=== PATIENT | female | born 2000 | race Caucasian/White ===

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

== ENCOUNTER 2018-03-01 00:05 | Inpatient (IN) | payer OTHER ==
[2018-03-01] VITALS (18 sets, daily range): BP systolic 108–141; BP diastolic 63–79; PULSE 92–133; RESP 16–21; TEMP 99.2–102.7; O2SAT 87–98
[~2018-03-01] VITALS: Ht 167.6 cm; Wt 74.5 kg
[~2018-03-01 00:05] MED LIST changes: -AMOX400S9 PO; +AMOXICILL; -IBUP100T PO
[2018-03-01] MEDS ORDERED: PROM6.256 PO (00:27)
[2018-03-01] MEDS ORDERED: AUGM875T3 PO (00:27)
[2018-03-01] MEDS ORDERED: ALBUAER3 INH (00:27)
[2018-03-01] MEDS ORDERED: AZITHROMYCIN INJ 500 MG in SODIUM CHLOR 0.9% 250 ML INJ 250 ML IV STA (01:53)
[2018-03-01] MEDS ORDERED: cefTRIAXone INJ 2,000 MG in SODIUM CHLORIDE 0.9% INJ 100 ML IV STA (01:53)
[2018-03-01] MEDS ORDERED: ACETAMINOPHEN 325 MG TAB PO ONE (02:00)
[2018-03-01] MEDS ORDERED: RESP: ALBUTEROL 2.5 MG/IPRATROPIUM 0.5 MG NEB (SCH) INH ONE (02:00)
[2018-03-01] MEDS ORDERED: SODIUM CHLOR 0.9% 1000 ML INJ 1,000 ML IV ONE ×2 (02:00→07:30)
[2018-03-01 02:25] LABS: BILIRUBIN, URINE NEG (NEG); BLOOD, URINE NEG (NEG); GLUCOSE,URINE NEG (NEG); KETONE, URINE NEG (NEG); NITRITE,URINE NEG (NEG); PH, URINE 7.5 (5.0-8.5); URINE COLOR YELLOW (YELLW/STRAW); URINE LEUKOCYTE ESTERASE NEG (NEG)
[2018-03-01 02:36] LABS: CHLORIDE 103 MEQ/L (98-107); SODIUM (NA) 136 MEQ/L (136-145)
[2018-03-01 02:39] LABS: ALBUMIN 3.6 GM/DL (3.4-5.0); BICARBONATE 27.2 MEQ/L (21.0-32.0); CALCIUM 8.8 MG/DL (8.5-10.1); GLUCOSE,RANDOM 103 MG/DL (74-106)
[2018-03-01 02:40] LABS: BLOOD UREA NITROGEN 6 MG/DL (7-18)
--- NOTE | 2018-03-01 02:42 | RADRPT ---
EXAM DATE/TIME: 03/01/2018 02:14 [facility] COMPARISON: No previous studies available for comparison. INDICATIONS : Fever. MEDICAL HISTORY : None. SURGICAL HISTORY : None. ENCOUNTER: Initial ACUITY: 1 week PAIN SCORE: 0/10 LOCATION: Bilateral chest FINDINGS: Right upper lobe infiltrate. Left base infiltrate. No evidence of effusion. Cardiac contours are kiah sly satisfactory. CONCLUSION: Bilateral infiltrates. Timmy Tompkins MD on March 01, 2018 at 2:38 Board Certified Radiologist. This report was verified electronically.
[2018-03-01 02:43] LABS: ALT (GPT) 22 U/L (9-42); AST (GOT) 19 U/L (16-38); BASOPHIL % 0.3 % (0.0-2.0); CREATININE 0.63 MG/DL (0.50-1.00); EOSINOPHIL % 0.2 % (0.0-4.0); GLOMERULAR FILTRATION RATE 122 ML/MIN (>89); HEMATOCRIT 39.1 % (35.0-46.0); HEMOGLOBIN 12.9 GM/DL (11.6-15.3); LYMPH % 11.1 % (9.0-44.0); LYMPHOCYTE # 0.7 TH/MM3 (1.0-4.8); MEAN PLATELET VOLUME 8.8 FL (7.0-11.0); MONO % 5.8 % (0.0-8.0); MONOCYTE # 0.3 TH/MM3 (0-0.9); NEUT % 82.6 % (16.0-70.0); PLATELET COUNT 237 TH/MM3 (150-450); RED BLOOD COUNT 4.44 MIL/MM3 (4.00-5.30); RED CELL DISTRIBUTION WIDTH 12.7 % (11.6-17.2)
[2018-03-01 02:44] LABS: TOTAL BILIRUBIN ADULT 0.3 MG/DL (0.2-1.0); TOTAL PROTEIN 8.1 GM/DL (6.4-8.2)
[2018-03-01 02:45] LABS: ALKALINE PHOSPHATASE 75 U/L (45-117)
[2018-03-01 02:58] LABS: RBC, URINE 0-3 /hpf (0-3); SQUAMOUS EPITHELIAL CELL URINE 0-5 /hpf (0-5); WBC, URINE 0-2 /hpf (0-5)
--- NOTE | 2018-03-01 03:14 | PD ---
HPI Chief Complaint: Fever Time Seen by Provider: 01:53 Travel History International Travel<30 days: No Contact w/Intl Traveler<30days: No Traveled to known affect area: No History of Present Illness HPI 17-year-old female presents to the emergency department for persistent shortness of breath congested cough and fever. Patient reports 1 week ago on Saturday noted mild cough and fever. Symptoms persisted over the weekend and patient returned to the area from college was seen in urgent care on Saturday and started on Augmentin. Patient is taking Augmentin for 3 days and symptoms have not improved. No vomiting or diarrhea or abdominal pain. Patient has had left flank pain. No dysuria frequency urgency or hematuria. Last menstrual period was 1 week ago and reportedly normal for her. Patient has no chronic medical conditions. Patient has had myalgias and arthralgias. At clinic she had a negative flu test. Patient's overall pain 7-8/10 intensity. No report of sore throat ear pain neck pain or stiffness. No skin rash. Unable to identify exacerbating or alleviating factors. Patient is reportedly taking ibuprofen every 4-6 hours for fever. PFSH Past Medical History Narrative Medical Negative past medical history; immunizations current; dental surgery; no tobacco use alcohol use substance use; nursing notes reviewed Medical History: Denies Significant Hx Diminished Hearing: No Immunizations Current: Yes Tetanus Vaccination: < 5 Years Influenza Vaccination: Yes ?: Not LMP: 02/14/18 Past Surgical History Surgical History: No Previous Surgery Oral Surgery: Yes (WISDOM TEETH) Other Surgery: Yes (LIP CYST REMOVED) Social History Alcohol Use: No Tobacco Use: No Substance Use: No Allergies-Medications (Allergen,Severity, Reaction): Coded Allergies: prednisone (Verified Allergy, Severe, 03/01/18) Reported Meds & Prescriptions Reported Meds & Active Scripts Active Reported Promethazine-Codeine Liq 6.25-10 Mg/5 Ml Syrp 10 Ml PO Q6H PRN Proair Hfa 8.5 GM Inh (Albuterol Sulfate) 90 Mcg/Act Aer 2 Puff INH Q4-6H PRN 108 mcg/actuation Augmentin (Amoxicillin-Clavulanate) 875-125 Mg Tab 1 Tab PO BID Review of Systems Except as stated in HPI: all other systems reviewed are Neg General / Constitutional: Positive: Fever, Chills HENT: Positive: Congestion, No: Sore Throat Cardiovascular: No: Chest Pain or Discomfort Respiratory: Positive: Cough, Shortness of Breath Gastrointestinal: No: Vomiting, Abdominal Pain Genitourinary: Positive: Decreased Urinary Output, Flank Pain (left) Musculoskeletal: Positive: Myalgias, Arthralgias Skin: No Rash Neurologic: No: Weakness Psychiatric: No: Anxiety Hematologic/Lymphatic: No: Lymph Node Enlargement Physical Exam Narrative GENERAL: Well-developed well-nourished female in no respiratory distress, ill- appearing; febrile SKIN: Warm and dry. HEAD: Normocephalic. EYES: No scleral icterus. No injection or drainage. ENT: Mucous membranes moist airways patent no posterior pharyngeal redness induration or exudative change. NECK: Supple, trachea midline. No JVD or lymphadenopathy. No meningismus no nuchal rigidity CARDIOVASCULAR: Increased regular rate and rhythm without murmurs, gallops, or rubs. RESPIRATORY: Breath sounds equal bilaterally intermittent crackles. No accessory muscle use. GASTROINTESTINAL: Abdomen soft, non-tender, nondistended. MUSCULOSKELETAL: No cyanosis, or edema. BACK: Nontender without obvious deformity. Left side CVA tenderness. Data Data Last Documented VS Vital Signs Date Time Temp Pulse Resp B/P (MAP) Pulse Ox O2 Delivery O2 Flow Rate FiO2 03/01/18 03:06 99.6 112 18 108/64 (79) 98 Nasal Cannula 2.00 03/01/18 02:12 21 Orders Orders Acetaminophen (Tylenol) (03/01/18 02:00) Sepsis Workup Initiated (03/01/18 ) Complete Blood Count With Diff (03/01/18 01:53) Comprehensive Metabolic Panel (03/01/18 01:53) Lactic Acid Sepsis Protocol (03/01/18 01:53) Urinalysis - C+S If Indicated (03/01/18 01:53) Blood Culture (03/01/18 01:53) Chest, Single Ap (03/01/18 01:53) Blood Glucose (03/01/18 01:53) Ecg Monitoring (03/01/18 01:53) Iv Access Insert/Monitor (03/01/18 01:53) Oximetry (03/01/18 01:53) Ceftriaxone Inj (Rocephin Inj) (03/01/18 01:53) Azithromycin Inj (Zithromax Inj) (03/01/18 01:53) Albuterol-Ipratropium Neb (Duoneb Neb) (03/01/18 02:00) Sodium Chlor 0.9% 1000 Ml Inj (Ns 1000 M (03/01/18 02:00) Beta Hcg (Quant/Titer) (03/01/18 01:53) Monoscreen (03/01/18 02:02) Ceftriaxone Inj (Rocephin Inj) (03/01/18 23:00) Azithromycin Inj (Zithromax Inj) (03/01/18 23:00) Albuterol-Ipratropium Neb (Duoneb Neb) (03/01/18 03:30) Admit To Inpatient (03/01/18 ) Vital Signs (Adult) Q4H (03/01/18 03:18) Activity Oob Ad Teresa (03/01/18 03:18) Wireless Consultant / Telemetry .CONTINUOUS (03/01/18 03:18) Intake + Output MIROSLAVA.QSHIFT (03/01/18 03:18) Sodium Chlor 0.9% 1000 Ml Inj (Ns 1000 M (03/01/18 03:18) Sodium Chloride 0.9% Flush (Ns Flush) (03/01/18 03:30) Sodium Chloride 0.9% Flush (Ns Flush) (03/01/18 09:00) Ondansetron Inj (Zofran Inj) (03/01/18 03:30) Comprehensive Metabolic Panel (03/02/18 06:00) Complete Blood Count With Diff (03/02/18 06:00) Scd Bilateral/Knee High MIROSLAVA.BID (03/01/18 03:18) Xavier Bilateral/Knee High MIROSLAVA.QSHIFT (03/01/18 03:23) Acetaminophen (Tylenol) (03/01/18 03:30) Acetamin-Hydrocod 325-5 Mg ([place] 5-325 (03/01/18 03:30) Acetamin-Hydrocod 325-10 Mg ([place] 10-32 (03/01/18 03:30) Docusate Sodium-Senna (Denise-Colace) (03/01/18 09:00) Magnesium Hydroxide Liq (Milk Of Magnesi (03/01/18 03:30) Sennosides (Senokot) (03/01/18 03:30) Bisacodyl Supp (Dulcolax Supp) (03/01/18 03:30) Lactulose Liq (Lactulose Liq) (03/01/18 03:30) Inpatient Certification (03/01/18 ) Admit Order (Ed Use Only) (03/01/18 ) Wireless Consultant / Telemetry MIROSLAVA.Q8H (03/01/18 03:23) Diet Heart Healthy (03/01/18 Breakfast) Activity Oob With Assistance (03/01/18 03:23) Notify Dr: Other (03/01/18 03:23) Labs Laboratory Tests Test 03/01/18 00:50 03/01/18 02:00 03/01/18 02:20 White Blood Count 6.0 TH/MM3 Red Blood Count 4.44 MIL/MM3 Hemoglobin 12.9 GM/DL Hematocrit 39.1 % Mean Corpuscular Volume 88.0 FL Mean Corpuscular Hemoglobin 29.0 PG Mean Corpuscular Hemoglobin Concent 33.0 % Red Cell Distribution Width 12.7 % Platelet Count 237 TH/MM3 Mean Platelet Volume 8.8 FL Neutrophils (%) (Auto) 82.6 % Lymphocytes (%) (Auto) 11.1 % Monocytes (%) (Auto) 5.8 % Eosinophils (%) (Auto) 0.2 % Basophils (%) (Auto) 0.3 % Neutrophils # (Auto) 5.0 TH/MM3 Lymphocytes # (Auto) 0.7 TH/MM3 Monocytes # (Auto) 0.3 TH/MM3 Eosinophils # (Auto) 0.0 TH/MM3 Basophils # (Auto) 0.0 TH/MM3 CBC Comment AUTO DIFF Differential Comment AUTO DIFF CONFIRMED Blood Urea Nitrogen 6 MG/DL Creatinine 0.63 MG/DL Random Glucose 103 MG/DL Total Protein 8.1 GM/DL Albumin 3.6 GM/DL Calcium Level 8.8 MG/DL Alkaline Phosphatase 75 U/L Aspartate Amino Transf (AST/SGOT) 19 U/L Alanine Aminotransferase (ALT/SGPT) 22 U/L Total Bilirubin 0.3 MG/DL Sodium Level 136 MEQ/L Potassium Level 4.2 MEQ/L Chloride Level 103 MEQ/L Carbon Dioxide Level 27.2 MEQ/L Anion Gap 6 MEQ/L Estimat Glomerular Filtration Rate 122 ML/MIN Human Chorionic Gonadotropin, Quant LESS THAN 1 MIU/ML Urine Color YELLOW Urine Turbidity CLEAR Urine pH 7.5 Urine Specific [place] LESS/EQUAL 1.005 Urine Protein NEG mg/dL Urine Glucose (UA) NEG mg/dL Urine Ketones NEG mg/dL Urine Occult Blood NEG Urine Nitrite NEG Urine Bilirubin NEG Urine Urobilinogen 0.2 MG/DL Urine Leukocyte Esterase NEG Urine RBC 0-3 /hpf Urine WBC 0-2 /hpf Urine Squamous Epithelial Cells 0-5 /hpf Microscopic Urinalysis Comment CATH-CULT NOT IND Lactic Acid Level 0.6 mmol/L Monoscreen NEG MDM Medical Decision Making Medical Screen Exam Complete: Yes Emergency Medical Condition: Yes Medical Record Reviewed: Yes Interpretation(s) lactic acid: 0.6, not elevated quant hcg: less than 1, not elevated Last Impressions Chest X-Ray 03/01/18 0153 Signed Impressions: Service Date/Time: Saturday, March 01, 2018 02:14 - CONCLUSION: Bilateral infiltrates. Timmy Tompkins MD CBC & BMP Diagram 03/01/18 00:50 Total Protein 8.1, Albumin 3.6, Calcium Level 8.8, Alkaline Phosphatase 75, Aspartate Amino Transf (AST/SGOT) 19, Alanine Aminotransferase (ALT/SGPT) 22, Total Bilirubin 0.3 Vital Signs Date Time Temp Pulse Resp B/P (MAP) Pulse Ox O2 Delivery O2 Flow Rate FiO2 03/01/18 01:29 102.4 114 18 96 Nasal Cannula 2.00 03/01/18 00:29 122 18 94 Room Air 03/01/18 00:11 102.7 133 18 114/69 (84) 93 Differential Diagnosis Pneumonia, failed outpatient therapy, sepsis Narrative Course Patient placed on saloonkeeper IV access obtained specimens collected and sent for resulting patient administered cefepime and azithromycin Patient administered 2 L normal saline Chest x-ray bilateral infiltrates Patient administered additional 1 L normal saline CBC is automated differential values in normal range with lactic acid of 0.6 not elevated Metabolic panel normal range quantitative hCG less than 1 negative; urinalysis normal Patient given updraft treatment per RT room air O2 saturation 87% patient continued on supplemental oxygen 2 L/min nasal cannula Sepsis Criteria SIRS Criteria (2 or more): Temp > 100.9 or < 96.8, Heart rate over 90 Sepsis Criteria (SIRS+source): Infect source susp/known (pneumonia) Physician Communication Physician Communication discussed with Dr Lang for admission Diagnosis Primary Impression: Pneumonia Qualified Codes: J18.1 - Lobar pneumonia, unspecified organism Admitting Information Admitting Physician Requests: Admit Rima Rm MD March 01, 2018 03:14
[2018-03-01] MEDS ORDERED: ACETAMINOPHEN/HYDROcodone 325 MG/10 MG TAB PO PRN (03:30)
[2018-03-01] MEDS ORDERED: LACTULOSE SYRUP 20 GM/30 ML CUP PO PRN (03:30)
[2018-03-01] MEDS ORDERED: BISACODYL 10 MG SUPP RECTAL PRN (03:30)
[2018-03-01] MEDS ORDERED: SENNOSIDES 8.6 MG TAB PO PRN (03:30)
[2018-03-01] MEDS ORDERED: ONDANSETRON HCL 4 MG/2 ML VIAL IVP PRN (03:30)
[2018-03-01] MEDS ORDERED: MAGNESIUM HYDROXIDE SUSP 30 ML CUP PO PRN (03:30)
[2018-03-01] MEDS: SODIUM CHLOR 0.9% 1000 ML INJ 1,000 ML IV SCH ×3 (03:43→15:44)
[2018-03-01 04:19] LABS: MONOSCREEN NEG (NEG)
[2018-03-01] MEDS ORDERED: KETOROLAC TROMETHAMINE 30 MG/ML (IVP) VIAL IV PUSH ONE (07:30)
[2018-03-01] MEDS: RESP: ALBUTEROL 2.5 MG/IPRATROPIUM 0.5 MG NEB (PRN) NEB ×3 (07:30→23:44)
--- NOTE | 2018-03-01 07:38 | HHI.HP ---
[facility] Glenroy Jasmine M.D. Admission Diagnosis sepsis; pneumonia; failed OPT therapy Diagnoses: (1) Sepsis (2) Pneumonia Travel History International Travel<30 Days: No Contact w/Intl Traveler <30 Da: No Traveled to Known Affected Are: No Sepsis Criteria SIRS Criteria (2 or more): Temp > 100.9 or < 96.8, Heart rate over 90 Sepsis Criteria (SIRS+source): Infect source susp/known Criteria Outcome: Meets sepsis criteria History of Present Illness 17 year old female with no significant medical history presented to the ER with fever, congestion, shortness of breath, and cough. Symptoms began about a week ago with mild cough and fever and has since then persisted. She went to an urgent care three days ago and was given a prescription for Augmentin which she has been taking. She states a flu test there was negative. Her symptoms have not improved prompting her to seek further evaluation. She endorses some left low ribcage pain but denies dysuria, frequency, urgency, nausea, vomiting, diarrhea, or abdominal pain. LMP was 1 week prior. Other associated symptoms include myalgias. She has been taking Ibuprofen every 4-6 hours with minimal relief. She denies sore throat, ear pain, eye drainage, rash , or neck stiffness. She is on summer break from college at [employer] where she lives in a dorm. She denies any recent sick contacts or recent travel outside of the country. She received a flu shot this season. Review of Systems Constitutional: COMPLAINS OF: Fatigue, Fever, Chills, Change in appetite Eyes: DENIES: Blurred vision Ears, nose, mouth, throat: DENIES: Throat pain, Running Nose Respiratory: COMPLAINS OF: Cough, Sputum production, Shortness of breath, DENIES: Wheezing Cardiovascular: COMPLAINS OF: Chest pain, DENIES: Palpitations, Syncope Gastrointestinal: DENIES: Abdominal pain, Constipation, Diarrhea, Nausea, Vomiting Genitourinary: DENIES: Dysuria Musculoskeletal: COMPLAINS OF: Muscle aches Integumentary: DENIES: Rash Hematologic/lymphatic: DENIES: Bruising Neurologic: DENIES: Headache Psychiatric: DENIES: Anxiety Past Family Social History Past Medical History None Past Surgical History Lip surgery as a child [place] teeth extraction Reported Medications None Allergies: Coded Allergies: prednisone (Verified Allergy, Severe, 03/01/18) Active Ordered Medications Acetaminophen (Tylenol) 650 mg ONCE ONCE PO Last administered on 03/01/18at 01:50 ; Admin Dose 650 MG; Start 03/01/18 at 02:00; Stop 03/01/18 at 02:01; Status DC Acetaminophen (Tylenol) 650 mg Q6H PRN PO; Start 03/01/18 at 03:30 Acetaminophen/ Hydrocodone Bitart ([place] 5-325 Mg) 1 tab Q4H PRN PO; Start 03/01/18 at 03:30 Acetaminophen/ Hydrocodone Bitart ([place] 10-325 Mg) 1 tab Q4H PRN PO; Start 03/01/18 at 03:30 Albuterol/ Ipratropium (Duoneb Neb) 1 ampule ONCE ONCE INH Last administered on 03/01/18at 02:12; Admin Dose 1 AMPULE; Start 03/01/18 at 02:00; Stop 03/01/18 at 02:01; Status DC Albuterol/ Ipratropium (Duoneb Neb) 1 ampule Q4HR NEB PRN NEB Last administered on 03/01/18at 07:30; Admin Dose 1 AMPULE; Start 03/01/18 at 03:30 Azithromycin 500 mg/Sodium Chloride 250 ml @ 250 mls/hr ONCE STAT IV Last administered on 03/01/18at 02:54; Admin Dose 250 MLS/HR; Start 03/01/18 at 01:53; Stop 03/01/18 at 02:52; Status DC Azithromycin 500 mg/Sodium Chloride 250 ml @ 250 mls/hr Q24H IV; Start 03/01/18 at 23:00 Bisacodyl (Dulcolax Supp) 10 mg DAILY PRN RECTAL; Start 03/01/18 at 03:30 Ceftriaxone Sodium 1000 mg/ Sodium Chloride 100 ml @ 200 mls/hr Q24H IV; Start 03/01/18 at 23:00 Ceftriaxone Sodium 2000 mg/ Sodium Chloride 100 ml @ 200 mls/hr ONCE STAT IV Last administered on 03/01/18at 02:35; Admin Dose 200 MLS/HR; Start 03/01/18 at 01: 53; Stop 03/01/18 at 02:22; Status DC Ketorolac Tromethamine (Toradol Inj) 30 mg ONCE ONCE IV PUSH Last administered on 03/01/18at 07:26; Admin Dose 30 MG; Start 03/01/18 at 07:30; Stop 03/01/18 at 07: 31; Status DC Lactulose (Lactulose Liq) 30 ml DAILY PRN PO; Start 03/01/18 at 03:30 Magnesium Hydroxide (Milk Of Magnesia Liq) 30 ml Q12H PRN PO; Start 03/01/18 at 03:30 Ondansetron HCl (Zofran Inj) 4 mg Q6H PRN IVP Last administered on 03/01/18at 03: 37; Admin Dose 4 MG; Start 03/01/18 at 03:30 Senna/Docusate Sodium (Denise-Colace) 1 tab BID PO; Start 03/01/18 at 09:00 Sennosides (Senokot) 17.2 mg Q12H PRN PO; Start 03/01/18 at 03:30 Sodium Chloride 1,000 ml @ 100 mls/hr Q10H IV Last administered on 03/01/18at 03: 43; Admin Dose 100 MLS/HR; Start 03/01/18 at 03:18 Sodium Chloride 1,000 ml @ 999 mls/hr BOLUS ONCE IV Last administered on at 02:34; Admin Dose 999 MLS/HR; Start 03/01/18 at 02:00; Stop 03/01/18 at 03:00 ; Status DC Sodium Chloride 1,000 ml @ 999 mls/hr BOLUS ONCE IV Last administered on at 07:25; Admin Dose 999 MLS/HR; Start 03/01/18 at 07:30; Stop 03/01/18 at 08:30 ; Status DC Sodium Chloride (NS Flush) 2 ml BID IV FLUSH; Start 03/01/18 at 09:00 Sodium Chloride (NS Flush) 2 ml UNSCH PRN IV FLUSH; Start 03/01/18 at 03:30 Family History Noncontributory Social History Attends [employer] and lives in dorm Denies EtOH, tobacco, illicit drugs Physical Exam Vital Signs Vital Signs Date Time Temp Pulse Resp B/P (MAP) Pulse Ox O2 Delivery O2 Flow Rate FiO2 03/01/18 05:00 92 18 110/66 (81) 98 Nasal Cannula 2.00 03/01/18 03:06 99.6 112 18 108/64 (79) 98 Nasal Cannula 2.00 03/01/18 02:20 93 Nasal Cannula 2.00 03/01/18 02:12 87 21 03/01/18 01:29 102.4 114 18 96 Nasal Cannula 2.00 03/01/18 00:29 122 18 94 Room Air 03/01/18 00:11 102.7 133 18 114/69 (84) 93 Physical Exam GENERAL: Well-nourished, well-developed female laying comfortably in bed in no apparent distress. SKIN: No rashes, ecchymoses or lesions. Cool and dry. HEENT: Atraumatic. Normocephalic. No temporal or scalp tenderness. TMs clear bilaterally with no erythema, exudate, or bulging. Pupils equal round and reactive. Extraocular motions intact. No scleral icterus. No injection or drainage. Nose without bleeding, purulent drainage or septal hematoma. Throat without erythema, tonsillar hypertrophy or exudate. Uvula midline. Airway patent. NECK: Trachea midline. No JVD or lymphadenopathy. Supple, nontender, no meningeal signs. Negative Brudzinski and Kernig's signs. CARDIOVASCULAR: Tachycardic with a regular rhythm. No appreciable murmurs, gallops, or rubs. RESPIRATORY: Diminished at the bases but otherwise clear throughout with no appreciable wheezes or crackles. GASTROINTESTINAL: Abdomen soft, non-tender, nondistended. No hepatosplenomegaly or palpable masses. No guarding. MUSCULOSKELETAL: Extremities without clubbing, cyanosis, or edema. No joint tenderness, effusion, or edema noted. No calf tenderness. Negative Homans sign bilaterally. NEUROLOGICAL: Awake and alert. Motor and sensory grossly within normal limits. Normal speech. Laboratory Laboratory Tests Test 03/01/18 00:50 03/01/18 02:00 03/01/18 02:20 White Blood Count 6.0 Red Blood Count 4.44 Hemoglobin 12.9 Hematocrit 39.1 Mean Corpuscular Volume 88.0 Mean Corpuscular Hemoglobin 29.0 Mean Corpuscular Hemoglobin Concent 33.0 Red Cell Distribution Width 12.7 Platelet Count 237 Mean Platelet Volume 8.8 Neutrophils (%) (Auto) 82.6 Lymphocytes (%) (Auto) 11.1 Monocytes (%) (Auto) 5.8 Eosinophils (%) (Auto) 0.2 Basophils (%) (Auto) 0.3 Neutrophils # (Auto) 5.0 Lymphocytes # (Auto) 0.7 Monocytes # (Auto) 0.3 Eosinophils # (Auto) 0.0 Basophils # (Auto) 0.0 CBC Comment AUTO DIFF Differential Comment AUTO DIFF CONFIRMED Blood Urea Nitrogen 6 Creatinine 0.63 Random Glucose 103 Total Protein 8.1 Albumin 3.6 Calcium Level 8.8 Alkaline Phosphatase 75 Aspartate Amino Transf (AST/SGOT) 19 Alanine Aminotransferase (ALT/SGPT) 22 Total Bilirubin 0.3 Sodium Level 136 Potassium Level 4.2 Chloride Level 103 Carbon Dioxide Level 27.2 Anion Gap 6 Estimat Glomerular Filtration Rate 122 Human Chorionic Gonadotropin, Quant LESS THAN 1 Urine Color YELLOW Urine Turbidity CLEAR Urine pH 7.5 Urine Specific [place] LESS/EQUAL 1.005 Urine Protein NEG Urine Glucose (UA) NEG Urine Ketones NEG Urine Occult Blood NEG Urine Nitrite NEG Urine Bilirubin NEG Urine Urobilinogen 0.2 Urine Leukocyte Esterase NEG Urine RBC 0-3 Urine WBC 0-2 Urine Squamous Epithelial Cells 0-5 Microscopic Urinalysis Comment CATH-CULT NOT IND Lactic Acid Level 0.6 Monoscreen NEG Date/Time Source Procedure Growth Status 03/01/18 00:50 Blood Peripheral Aerobic Blood Culture Pending Received 03/01/18 00:50 Blood Peripheral Anaerobic Blood Culture Pending Received Result Diagram: 03/01/18 0050 03/01/18 0050 Imaging Chest X-Ray 03/01/18 0153 Signed Impressions: Service Date/Time: Thursday, March 01, 2018 02:14 - CONCLUSION: Bilateral infiltrates. Timmy Tompkins MD Septic Shock Reassessment Septic shock perfusion: reassessment completed Caprini VTE Risk Assessment Caprini VTE Risk Assessment: Mod/High Risk (score >= 2) Caprini Risk Assessment Model Point Value = 1 Point Value = 2 Point Value = 3 Point Value = 5 Age 41-60 Minor surgery BMI > 25 kg/m2 Swollen legs Varicose veins or History of unexplained or recurrent spontaneous Oral contraceptives or hormone replacement Sepsis (< 1 month) Serious lung disease, including pneumonia (< 1 month) Abnormal pulmonary function Acute myocardial infarction Congestive heart failure (< 1 month) History of inflammatory bowel disease Medical patient at bed rest Age 61-74 Arthroscopic surgery Major open surgery (> 45 min) Laparoscopic surgery (> 45 min) Malignancy Confined to bed (> 72 hours) Immobilizing plaster cast Central venous access Age >= 75 History of VTE Family history of VTE Factor V Leiden Prothrombin [id number] Lupus anticoagulant Anticardiolipin antibodies Elevated serum homocysteine Heparin-induced thrombocytopenia Other congenital or acquired thrombophilia Stroke (< 1 month) Elective arthroplasty Hip, pelvis, or leg fracture Acute spinal cord injury (< 1 month) Prophylaxis Regimen Total Risk Factor Score Risk Level Prophylaxis Regimen 0-1 Low Early ambulation 2 Moderate Order ONE of the following: *Sequential Compression Device (SCD) *Heparin 5000 units SQ BID 3-4 Higher Order ONE of the following medications: *Heparin 5000 units SQ TID *Enoxaparin/Lovenox 40 mg SQ daily (WT < 150 kg, CrCl > 30 mL/min) *Enoxaparin/Lovenox 30 mg SQ daily (WT < 150 kg, CrCl > 10-29 mL/min) *Enoxaparin/Lovenox 30 mg SQ BID (WT < 150 kg, CrCl > 30 mL/min) AND/OR *Sequential Compression Device (SCD) 5 or more Highest Order ONE of the following medications: *Heparin 5000 units SQ TID (Preferred with Epidurals) *Enoxaparin/Lovenox 40 mg SQ daily (WT < 150 kg, CrCl > 30 mL/min) *Enoxaparin/Lovenox 30 mg SQ daily (WT < 150 kg, CrCl > 10-29 mL/min) *Enoxaparin/Lovenox 30 mg SQ BID (WT < 150 kg, CrCl > 30 mL/min) AND *Sequential Compression Device (SCD) Assessment and Plan Assessment and Plan 17 YOWF with no known medical history presenting with cough, congestion, and fever found to have bilateral infiltrates on CXR as well as sepsis. 1. Sepsis - T 102.7 on admission, tachycardia with HR>100, and CXR showing bilateral infiltrates - White count normal but with predominant neutrophils - Blood cultures pending - U/A negative - Lactic acid WNL - Influenza negative - Negative Monoscreen - Bolused 1 L in the ED and started on Rocephin and Azithromycin which will be continued 2. Pneumonia - Check urine legionella and pneumococcal antigens - Check respiratory panel - Check sputum culture - Continue Rocephin and Azithromycin for coverage of community acquired PNA - DuoNeb Q4 PRN - Supplemental O2 PRN - Tylenol PRN fever/headache - [place] PRN myalgias FEN: - NS at 100 ml/hr - Monitor and replete electrolytes PRN - Regular diet DVT prophylaxis: Young and ambulatory, bilateral SCDs Code Status FULL Discussed Condition With The patient Physician Certification 2 Midnight Certification Type: Admission for Inpatient Services Order for Inpatient Services The services are ordered in accordance with Medicare regulations or non- Medicare payer requirements, as applicable. In the case of services not specified as inpatient-only, they are appropriately provided as inpatient services in accordance with the 2-midnight benchmark. Estimated LOS (days): 2 2 days is the estimated time the patient will need to remain in the hospital, assuming treatment plan goals are met and no additional complications. Post-Hospital Plan: Home Problem Qualifiers (1) Pneumonia: Qualified Codes: J18.1 - Lobar pneumonia, unspecified organism Ofe Joseph MD March 01, 2018 07:38
[2018-03-01] MEDS: DOCUSATE SODIUM 50 MG/SENNA 8.6 MG TAB PO SCH ×2 (09:45→21:21)
[2018-03-01] MEDS: SODIUM CHLORIDE 0.9% FLUSH 10 ML FLUSH IV FLUSH SCH ×2 (09:46→21:20)
[2018-03-01] MEDS: ACETAMINOPHEN 325 MG TAB PO PRN ×2 (11:19→17:19)
[2018-03-01] MEDS ORDERED: Vancomycin Consult Pharmacy 1 EA OTHER SCH (13:30)
[2018-03-01] MEDS ORDERED: VANCOMYCIN INJ 1,000 MG in SODIUM CHLOR 0.9% 250 ML INJ 250 ML IV SCH (14:00)
[2018-03-01] MEDS: PIPERACIL-TAZO 4.5 GM PREMIX 100 ML IV SCH ×2 (14:52→21:20)
[2018-03-01] MEDS: VANCOMYCIN INJ 1,000 MG in SODIUM CHLOR 0.9% 250 ML INJ 250 ML IV SCH ×2 (15:32→23:35)
[2018-03-01] MEDS: RESP: ALBUTEROL 2.5 MG/IPRATROPIUM 0.5 MG NEB (SCH) NEB ×2 (15:39→19:28)
[2018-03-01] MEDS ORDERED: AZITHROMYCIN 250 MG TAB PO SCH (18:00)
--- NOTE | 2018-03-01 18:19 | RADRPT ---
EXAM DATE/TIME: 03/01/2018 15:25 [facility] COMPARISON: No previous studies available for comparison. INDICATIONS : Distention, sepsis, pneumonia MEDICAL HISTORY : None. SURGICAL HISTORY : None. ENCOUNTER: Subsequent ACUITY: 1 week PAIN SCORE: 5/10 LOCATION: Bilateral abdomen FINDINGS: Supine AP view of the abdomen. Multiple distended air-filled loops of small bowel and colon in the mi d and upper abdomen. Paucity of bowel gas in the pelvis. No abnormal abdominal calcification. Osseous structures within normal limits. CONCLUSION: Nonspecific bowel gas pattern with diffusely distended air-filled small bowel and colon in the upper and mid abdomen differential diagnosis includes ileus and distal colonic obstruction. Devan Lamb MD on March 01, 2018 at 18:15 Board Certified Radiologist. This report was verified electronically.
--- NOTE | 2018-03-01 20:31 | MB ---
cc: Gerry Alvarado MD, V J MD DATE: 03/01/2018 CHIEF COMPLAINT: Pneumonia and respiratory distress. HISTORY OF PRESENT ILLNESS: This is a 17-year-old female with a history of fever, shortness of breath, persistent cough with expectoration and respiratory distress for the past 1 week. She was initially treated with Augmentin as an outpatient. 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 The patient continued to have some fevers and persistent coughing and chest tightness and she thus was brought to the emergency room where a chest x-ray was done. It demonstrated a right lung infiltrate and she is now admitted for further evaluation. She was hypoxic and thus has been placed on 4 liters of oxygen to maintain her sats over 92. Her chest x-ray does show infiltrates in the right upper lobe as well as the left lung. The patient denies hemoptysis. She has had no weight loss. She does have some nausea and abdominal pain. No vomiting or aspiration. PAST MEDICAL HISTORY: Included history for lip surgery and she denies a history of asthma or previous pneumonias. ALLERGIES: TO ? PREDNISONE. REVIEW OF SYSTEMS: The patient is unable to provide too many details. Seems quite uncomfortable and in some pain and distress and has some wheezing. SOCIAL HISTORY: The patient does not smoke. No alcohol use or illicit drug use. FAMILY HISTORY: Noncontributory. PHYSICAL EXAMINATION: GENERAL: This is an averagely built young white female who looks in some distress. She is lethargic and pale and having a temperature and warm to the touch. VITAL SIGNS: The blood pressure is 110/60, pulse is 105, respirations 24, temperature 99.6. HEENT: Head is normocephalic. Pupils are reactive. Tongue is coated. Throat is injected. Nasal mucosa edematous. NECK: Supple. No bruits or thyroid enlargement. CHEST: Decreased breath sounds over the bases with few coarse wheezes throughout both lung bai. HEART: Sounds are regular, S1 and S2 with no murmur. ABDOMEN: Soft, scaphoid with mild epigastric tenderness. There is no organomegaly. EXTREMITIES: No lesions, no edema. NEUROLOGIC: Reflexes are 1+ with no gross motor deficit. Cranial nerves grossly intact. SKIN: No lesions observed. ASSESSMENT: 1. Atypical pneumonia with hypoxemia. 2. Dehydration. 3. Sepsis. PLAN: The patient will be continued on antibiotic coverage broad spectrum including vancomycin 1 gram IV, Zosyn 3.375 grams IV q. 6 and Zithromax 500 mg daily. Oxygen at 4 liters nasal cannula to maintain sats above 92. Duo-neb solution [address] chest will be obtained to evaluate her. Urine for Legionella and pneumococcal antigens will be done. Blood cultures and sputum cultures were pending. A chest x-ray will be repeated in the a.m. IV fluids will be continued for hydration and Mucinex 600 mg b.i.d. was added. Thank you, Dr. Morrison, for this consultation. VShruti Alvarado MD VJD/ , 07:39 PM , 08:31 PM
--- NOTE | 2018-03-01 21:06 | RADRPT ---
EXAM DATE/TIME: 03/01/2018 20:40 [facility] COMPARISON: No previous studies available for comparison. INDICATIONS : Fever, cough, congestion and short of breath x 1 week. Evaluate for pneumonia. RADIATION DOSE: 11.52 CTDIvol (mGy) MEDICAL HISTORY : None SURGICAL HISTORY : None. ENCOUNTER: Initial ACUITY: 1 week PAIN SCALE: 7/10 LOCATION: Bilateral chest TECHNIQUE: Volumetric scanning of the chest was performed. Using automated exposure control and adjustment of t he mA and/or kV according to patient size, radiation dose was kept as low as reasonably achievable to obtain optimal diagnostic quality images. DICOM format image data is available electronically for r eview and comparison. Follow-up recommendations for detected pulmonary nodules are based at a minimum on nodule size and pa tient risk factors according to Fleischner Society Guidelines. FINDINGS: Alveolar consolidations are noted involving the right upper lobe, lingula of the left upper lobe, and bilateral lower lobes consistent with extensive pneumonia. Clinical correlation is recommended. The heart is normal size. No mediastinal or axillary lymphadenopathy is noted. Bilateral hilar lymphadeno clint is questioned. Mild hepatosplenomegaly is noted. CONCLUSION: 1. Alveolar consolidations involving the right upper lobe, lingula of the left upper lobe, and bilate ral lower lobes consistent with extensive bilateral pneumonia. Clinical correlation is recommended. 2. Possible bilateral hilar lymphadenopathy. 3. Mild hepatosplenomegaly. Luis Miguel Contreras MD on March 01, 2018 at 20:59 Board Certified Radiologist. This report was verified electronically.
[2018-03-01] MEDS: methylPREDNISolone SOD SUCC 40 MG/1 ML VIAL IV PUSH SCH (21:21)
[2018-03-01] MEDS: guaiFENesin E.R. 600 MG TAB PO SCH (21:21)
[2018-03-01] MEDS ORDERED: cefTRIAXone INJ 1,000 MG in SODIUM CHLORIDE 0.9% INJ 100 ML IV SCH (23:00)
[2018-03-01] MEDS ORDERED: AZITHROMYCIN INJ 500 MG in SODIUM CHLOR 0.9% 250 ML INJ 250 ML IV SCH (23:00)
[2018-03-02] VITALS (24 sets, daily range): BP systolic 100–127; BP diastolic 55–80; PULSE 56–139; RESP 16–34; TEMP 96.7–99; O2SAT 93–99
[2018-03-02] MEDS: PIPERACIL-TAZO 4.5 GM PREMIX 100 ML IV SCH ×4 (01:55→19:31)
[2018-03-02] MEDS: RESP: ALBUTEROL 2.5 MG/IPRATROPIUM 0.5 MG NEB (PRN) NEB (04:29)
[2018-03-02] MEDS: ACETAMINOPHEN/HYDROcodone 325 MG/5 MG TAB PO PRN (04:52)
[2018-03-02] MEDS: methylPREDNISolone SOD SUCC 40 MG/1 ML VIAL IV PUSH SCH ×2 (05:53→14:18)
[2018-03-02] MEDS ORDERED: CHLORHEXIDINE GLUCONATE 2 % 1 PACK (2 CLOTHS)(extra cloths) TOPICAL PRN (06:45)
[2018-03-02] MEDS: VANCOMYCIN INJ 1,000 MG in SODIUM CHLOR 0.9% 250 ML INJ 250 ML IV SCH ×2 (07:57→16:31)
[2018-03-02] MEDS: RESP: ALBUTEROL 2.5 MG/IPRATROPIUM 0.5 MG NEB (SCH) NEB ×3 (08:00→21:58)
[2018-03-02] MEDS: SODIUM CHLORIDE 0.9% FLUSH 10 ML FLUSH IV FLUSH SCH ×2 (09:00→21:47)
[2018-03-02 09:27] LABS: AUTOMATED NEUTROPHIL # 3.5 TH/MM3 (1.8-7.7); BASOPHIL % 0.6 % (0.0-2.0); HEMATOCRIT 32.1 % (35.0-46.0); HEMOGLOBIN 10.7 GM/DL (11.6-15.3); LYMPH % 12.1 % (9.0-44.0); LYMPHOCYTE # 0.5 TH/MM3 (1.0-4.8); MEAN CELL VOLUME 94.2 FL (80.0-100.0); MEAN CORPUSCULAR HEMOGLOBIN 31.5 PG (27.0-34.0); MEAN CORPUSCULAR HGB CONC 33.4 % (32.0-36.0); MEAN PLATELET VOLUME 7.6 FL (7.0-11.0); MONO % 1.5 % (0.0-8.0); MONOCYTE # 0.1 TH/MM3 (0-0.9); NEUT % 85.8 % (16.0-70.0); PLATELET COUNT 200 TH/MM3 (150-450); RED BLOOD COUNT 3.41 MIL/MM3 (4.00-5.30); RED CELL DISTRIBUTION WIDTH 12.5 % (11.6-17.2); WHITE BLOOD COUNT 4.1 TH/MM3 (4.0-11.0)
[2018-03-02] MEDS: guaiFENesin E.R. 600 MG TAB PO SCH ×2 (09:35→21:42)
[2018-03-02] MEDS: DOCUSATE SODIUM 50 MG/SENNA 8.6 MG TAB PO SCH ×2 (09:35→21:43)
[2018-03-02] MEDS: SODIUM CHLOR 0.9% 1000 ML INJ 1,000 ML IV SCH ×2 (09:35→19:32)
[2018-03-02 09:57] LABS: CHLORIDE 108 MEQ/L (98-107); SODIUM (NA) 141 MEQ/L (136-145)
[2018-03-02 10:00] LABS: CALCIUM 8.3 MG/DL (8.5-10.1)
[2018-03-02 10:01] LABS: BICARBONATE 26.7 MEQ/L (21.0-32.0); GLUCOSE,RANDOM 159 MG/DL (74-106)
[2018-03-02 10:05] LABS: ALBUMIN 2.8 GM/DL (3.4-5.0); ALT (GPT) 20 U/L (9-42); AST (GOT) 12 U/L (16-38); BLOOD UREA NITROGEN 4 MG/DL (7-18); CREATININE 0.45 MG/DL (0.50-1.00); GLOMERULAR FILTRATION RATE 179 ML/MIN (>89)
[2018-03-02 11:13] LABS: ALKALINE PHOSPHATASE 63 U/L (45-117); TOTAL BILIRUBIN ADULT 0.2 MG/DL (0.2-1.0); TOTAL PROTEIN 7.1 GM/DL (6.4-8.2)
[2018-03-02] MEDS ORDERED: PHARMACY ORDERED LAB ONE (14:45)
--- NOTE | 2018-03-02 15:13 | HHI.PR ---
Subjective Remarks Follow-up sepsis pneumonia. Patient seen and examined, lying in bed much improved since yesterday. Father at bedside and updated as well. Vital signs are stable. Afebrile overnight. Labs reviewed and improved. UA negative. Comfortable on room air. Has been with poor appetite although has been eating, denies any bowel movement or flatus. Abdominal x-ray showing ileus versus colonic obstruction. Will obtain abdominal CT. Objective Vitals Vital Signs Date Time Temp Pulse Resp B/P (MAP) Pulse Ox O2 Delivery O2 Flow Rate FiO2 03/02/18 14:01 64 17 104/60 (75) 95 03/02/18 14:00 65 03/02/18 13:00 97.9 56 16 100/65 (77) 96 03/02/18 12:00 72 17 102/66 (78) 95 03/02/18 12:00 63 03/02/18 11:00 70 19 107/64 (78) 95 03/02/18 10:00 68 03/02/18 10:00 78 21 104/59 (74) 93 03/02/18 09:20 94 21 03/02/18 09:00 98 22 119/64 (82) 95 03/02/18 08:00 76 22 104/67 (79) 95 03/02/18 08:00 99 Nasal Cannula 2.00 03/02/18 08:00 68 03/02/18 07:00 97.4 76 18 107/58 (74) 97 03/02/18 06:00 93 03/02/18 06:00 86 17 106/55 (72) 97 03/02/18 05:52 16 03/02/18 05:00 106 25 120/67 (84) 98 03/02/18 04:00 98.4 96 27 109/75 (86) 98 03/02/18 04:00 109 03/02/18 03:00 94 26 106/62 (77) 97 03/02/18 02:00 98 03/02/18 02:00 102 23 115/69 (84) 99 03/02/18 01:00 99.0 106 24 115/73 (87) 98 03/02/18 00:28 136 34 127/77 (94) 95 03/02/18 00:00 139 03/01/18 23:44 97 Nasal Cannula 3.50 03/01/18 20:00 100.8 129 21 115/63 (80) 97 03/01/18 19:28 95 Nasal Cannula 3.50 03/01/18 17:32 95 Nasal Cannula 2.00 03/01/18 17:27 101.1 03/01/18 15:56 100.6 109 20 116/67 (83) 95 I/O 03/01/18 03/01/18 03/01/18 03/02/18 03/02/18 03/02/18 07:00 15:00 23:00 07:00 15:00 23:00 Intake Total 1350 ml 1240 ml 2346 ml 480 ml Output Total 600 ml 700 ml Balance 1350 ml 1240 ml 1746 ml -220 ml Intake Oral 240 ml 800 ml 480 ml IV Total 1350 ml 1000 ml 1546 ml Output Urine Total 600 ml 700 ml # Bowel Movements 1 0 Result Diagram: 03/02/18 0910 03/02/18 0910 Imaging Last Impressions Chest CT 03/01/18 1929 Signed Impressions: Service Date/Time: Thursday, March 01, 2018 20:40 - CONCLUSION: 1. Alveolar consolidations involving the right upper lobe, lingula of the left upper lobe, and bilateral lower lobes consistent with extensive bilateral pneumonia. Clinical correlation is recommended. 2. Possible bilateral hilar lymphadenopathy. 3. Mild hepatosplenomegaly. Luis Miguel Contreras MD Chest X-Ray 03/01/18 0153 Signed Impressions: Service Date/Time: Thursday, March 01, 2018 02:14 - CONCLUSION: Bilateral infiltrates. Timmy Tompkins MD Abdomen X-Ray 03/01/18 0000 Signed Impressions: Service Date/Time: Thursday, March 01, 2018 15:25 - CONCLUSION: Nonspecific bowel gas pattern with diffusely distended air-filled small bowel and colon in the upper and mid abdomen differential diagnosis includes ileus and distal colonic obstruction. Devan Lamb MD Objective Remarks GENERAL: Well-developed, well-nourished patient in NAD. Much improved. SKIN: Warm and dry. No rash. HEAD: Normocephalic. Atraumatic. EYES: Pupils equal and round. No scleral icterus. No injection or drainage. ENT: No nasal bleeding or discharge. Mucous membranes pink and moist. NECK: Supple. Trachea midline. CARDIOVASCULAR: Regular rate and rhythm. S1, S2 noted. No murmur appreciated. RESPIRATORY: No accessory muscle use. Clear to auscultation. Breath sounds equal bilaterally. GASTROINTESTINAL: Abdomen soft, non-tender, nondistended. Normoactive bowel sounds x4. MUSCULOSKELETAL: No obvious deformities. Extremities without clubbing, cyanosis , or edema. NEUROLOGICAL: Awake and alert. No obvious cranial nerve deficits. Motor grossly within normal limits. 4/5 muscle strength in bilateral upper and lower extremities. Normal speech. PSYCHIATRIC: Appropriate mood and affect; insight and judgment normal. A/P Problem List: (1) Sepsis ICD Code: A41.9 - Sepsis, unspecified organism (2) Pneumonia ICD Code: J18.9 - Pneumonia, unspecified organism Status: Acute Assessment and Plan 17 YOWF with no known medical history presenting with cough, congestion, and fever found to have bilateral infiltrates on CXR as well as sepsis. Sepsis - T 102.7 on admission, tachycardia with HR>100, and CXR showing bilateral infiltrates. Chest CT showing bilateral pneumonia. Fever and tachycardia improved. - White count normal but with predominant neutrophils - Blood cultures no growth to date. - U/A negative - Lactic acid WNL - Influenza negative - Negative Monoscreen - Bolused 1 L in the ED and started on Rocephin and Azithromycin. Changed to Zosyn and Vanco. - ID consulted appreciate input and recommendations. Pneumonia - Urine legionella negative and pneumococcal antigen positive. - Sputum culture negative - Rocephin and Azithromycin initially started for coverage of community acquired PNA. Changed to Vanco and Zosyn IV. Added Lactobacillus. - Pulmonology consulted, appreciate input and recommendations. - DuoNeb Q4 PRN - Supplemental O2 PRN, comfortable on RA. - Tylenol PRN fever/headache - [place] PRN myalgias - Encourage use of Acapella. Constipation. Rule out ileus vs colonic obstruction - Denies any abdominal pain. No bowel movement for several days. Is not passing flatus. - Abdominal x-ray reviewed showing bowel gas pattern with nonspecific diffuse distended air-fluid in the small bowel and colon. - Will obtain abdominal CT, pending and follow. - Continue bowel regimen. Monitor for bowel movements. DVT prophylaxis: Young and ambulatory, bilateral SCDs Problem Qualifiers (1) Pneumonia: Qualified Codes: J18.1 - Lobar pneumonia, unspecified organism Kaylene Cevallos March 02, 2018 15:13
[2018-03-02] MEDS ORDERED: DIATRIZOATE MEGLUM/DIATRIZOATE SOD 9 ML CUP PO ONE (15:15)
[2018-03-02] MEDS: LACTOBACILLUS ACIDOPHILUS TAB PO SCH (17:34)
--- NOTE | 2018-03-02 17:55 | HHI.PR ---
Subjective Remarks Feels better. No fever . Less cough and wheezing. CT noted. Objective Vital Signs Date Time Temp Pulse Resp B/P (MAP) Pulse Ox O2 Delivery O2 Flow Rate FiO2 03/02/18 16:00 98.2 96 23 117/66 (83) 98 03/02/18 15:01 98 27 117/66 (83) 93 03/02/18 14:20 96 21 03/02/18 14:01 64 17 104/60 (75) 95 03/02/18 14:00 65 03/02/18 13:00 97.9 56 16 100/65 (77) 96 03/02/18 12:00 72 17 102/66 (78) 95 03/02/18 12:00 63 03/02/18 11:00 70 19 107/64 (78) 95 03/02/18 10:00 68 03/02/18 10:00 78 21 104/59 (74) 93 03/02/18 09:20 94 21 03/02/18 09:00 98 22 119/64 (82) 95 03/02/18 08:00 76 22 104/67 (79) 95 03/02/18 08:00 99 Nasal Cannula 2.00 03/02/18 08:00 68 03/02/18 07:00 97.4 76 18 107/58 (74) 97 03/02/18 06:00 93 03/02/18 06:00 86 17 106/55 (72) 97 03/02/18 05:52 16 03/02/18 05:00 106 25 120/67 (84) 98 03/02/18 04:00 98.4 96 27 109/75 (86) 98 03/02/18 04:00 109 03/02/18 03:00 94 26 106/62 (77) 97 03/02/18 02:00 98 03/02/18 02:00 102 23 115/69 (84) 99 03/02/18 01:00 99.0 106 24 115/73 (87) 98 03/02/18 00:28 136 34 127/77 (94) 95 03/02/18 00:00 139 03/01/18 23:44 97 Nasal Cannula 3.50 5 20:00 100.8 129 21 115/63 (80) 97 03/01/18 19:28 95 Nasal Cannula 3.50 I/O 03/01/18 03/01/18 03/01/18 03/02/18 03/02/18 03/02/18 07:00 15:00 23:00 07:00 15:00 23:00 Intake Total 1350 ml 1240 ml 2346 ml 480 ml Output Total 600 ml 700 ml Balance 1350 ml 1240 ml 1746 ml -220 ml Intake Oral 240 ml 800 ml 480 ml IV Total 1350 ml 1000 ml 1546 ml Output Urine Total 600 ml 700 ml # Bowel Movements 1 0 Result Diagram: 03/02/18 0910 03/02/18 09 Objective Remarks GENERAL: This is an averagely built young white female who looks in some distress. She is lethargic and pale . HEENT: Head is normocephalic. Pupils are reactive. Tongue is coated. Throat is injected. Nasal mucosa edematous. NECK: Supple. No bruits or thyroid enlargement. CHEST: Decreased breath sounds over the bases . HEART: Sounds are regular, S1 and S2 with no murmur. ABDOMEN: Soft, scaphoid with mild epigastric tenderness. There is no organomegaly. EXTREMITIES: No lesions, no edema. NEUROLOGIC: Reflexes are 1+ with no gross motor deficit. Cranial nerves grossly intact. SKIN: No lesions observed. Assessment and Plan Assessment and Plan ASSESSMENT: 1. Atypical pneumonia with hypoxemia. 2. Dehydration. 3. Sepsis. 4. Ileus Plan : 1. Continue antibiotics. 2. O2 PRN 2 L 3. Nebs qid duoneb 4. Taper solumedrol to 20 mg BID X 1 days 5. CBC,BMP in am 6. ID consult Gerry Alvarado MD March 02, 2018 17:55
[2018-03-02] MEDS ORDERED: IOHEXOL 350 MG/ML 10 ML VIAL (for RAD DIAG) IVCONTRAST ONE (18:26)
--- NOTE | 2018-03-02 18:38 | RADRPT ---
EXAM DATE/TIME: 03/02/2018 18:15 [facility] COMPARISON: No previous studies available for comparison. INDICATIONS : Abdominal distention. Left upper quadrant pain. IV CONTRAST: 75 cc Omnipaque 350 (iohexol) IV ORAL CONTRAST: Prescribed oral contrast ingested. RADIATION DOSE: 8.85 CTDIvol (mGy) MEDICAL HISTORY : None SURGICAL HISTORY : None. ENCOUNTER: Initial ACUITY: 1 day PAIN SCALE: 6/10 LOCATION: Left upper quadrant TECHNIQUE: Volumetric scanning of the abdomen and pelvis was performed. Using automated exposure control and ad justment of the mA and/or kV according to patient size, radiation dose was kept as low as reasonably achievable to obtain optimal diagnostic quality images. DICOM format image data is available electro nically for review and comparison. FINDINGS: LOWER LUNGS: Bilateral lower lobe pulmonary consolidation as seen on recent chest CT. LIVER: Homogeneous density without lesion. There is no dilation of the biliary tree. No calcified gallston es. SPLEEN: Splenic measurement is at the upper limits of normal measuring 11.4 cm in craniocaudal dimension. No focal mass. PANCREAS: Within normal limits. KIDNEYS: Normal in size and shape. There is no mass, stone or hydronephrosis. ADRENAL GLANDS: Within normal limits. VASCULAR: There is no aortic aneurysm. BOWEL/MESENTERY: No evidence of bowel dilatation. No free air or free fluid. Appendix within normal limits. ABDOMINAL WALL: Within normal limits. RETROPERITONEUM: There is no lymphadenopathy. BLADDER: No wall thickening or mass. REPRODUCTIVE: Within normal limits. INGUINAL: There is no lymphadenopathy or hernia. MUSCULOSKELETAL: Mild left convex thoracolumbar scoliosis. CONCLUSION: No acute findings in the abdomen and pelvis. Devan Lamb MD on March 02, 2018 at 18:31 Board Certified Radiologist. This report was verified electronically.
[2018-03-02] MEDS ORDERED: methylPREDNISolone SOD SUCC 40 MG/1 ML VIAL IV PUSH SCH (21:00)
[2018-03-02] MEDS: VANCOMYCIN INJ 1,250 MG in SODIUM CHLOR 0.9% 250 ML INJ 250 ML IV SCH (21:58)
[2018-03-03 01:40] VITALS: BP 115/80; PULSE 65; RESP 20; TEMP 96.8; O2SAT 95
[2018-03-03] MEDS: PIPERACIL-TAZO 4.5 GM PREMIX 100 ML IV SCH ×2 (02:40→09:53)
[2018-03-03] MEDS: CHLORHEXIDINE GLUCONATE 2 % 1 PACK (2 CLOTHS)(taper/protocol) TOPICAL SCH (02:40)
[2018-03-03] MEDS: SODIUM CHLORIDE 0.9% FLUSH 10 ML FLUSH IV FLUSH PRN ×2 (02:41→05:45)
[2018-03-03 04:37] VITALS: BP 109/77; PULSE 68; RESP 20; TEMP 96.9; O2SAT 97
[2018-03-03] MEDS: VANCOMYCIN INJ 1,250 MG in SODIUM CHLOR 0.9% 250 ML INJ 250 ML IV SCH ×3 (05:45→21:31)
[2018-03-03] MEDS: SODIUM CHLOR 0.9% 1000 ML INJ 1,000 ML IV SCH (05:45)
[2018-03-03] MEDS: RESP: ALBUTEROL 2.5 MG/IPRATROPIUM 0.5 MG NEB (SCH) NEB ×3 (07:40→21:13)
[2018-03-03 08:34] VITALS: BP 115/69; PULSE 103; RESP 23; TEMP 97; O2SAT 94
[2018-03-03] MEDS: LACTOBACILLUS ACIDOPHILUS TAB PO SCH ×4 (09:53→21:28)
[2018-03-03] MEDS: DOCUSATE SODIUM 50 MG/SENNA 8.6 MG TAB PO SCH ×2 (09:53→21:00)
[2018-03-03] MEDS: guaiFENesin E.R. 600 MG TAB PO SCH ×2 (09:53→21:28)
[2018-03-03] MEDS: methylPREDNISolone SOD SUCC 40 MG/1 ML VIAL IV PUSH SCH ×2 (09:54→21:29)
[2018-03-03] MEDS: SODIUM CHLORIDE 0.9% FLUSH 10 ML FLUSH IV FLUSH SCH ×2 (09:54→21:27)
[2018-03-03] MEDS: ACETAMINOPHEN/HYDROcodone 325 MG/5 MG TAB PO PRN (10:04)
[2018-03-03 10:52] LABS: AUTOMATED NEUTROPHIL # 8.6 TH/MM3 (1.8-7.7); BASOPHIL # 0.1 TH/MM3 (0-0.2); BASOPHIL % 1.3 % (0.0-2.0); HEMOGLOBIN 11.8 GM/DL (11.6-15.3); LYMPH % 9.5 % (9.0-44.0); MEAN CORPUSCULAR HGB CONC 33.7 % (32.0-36.0); MEAN PLATELET VOLUME 7.8 FL (7.0-11.0); MONO % 4.5 % (0.0-8.0); MONOCYTE # 0.5 TH/MM3 (0-0.9); NEUT % 84.7 % (16.0-70.0); PLATELET COUNT 306 TH/MM3 (150-450); RED BLOOD COUNT 3.68 MIL/MM3 (4.00-5.30); RED CELL DISTRIBUTION WIDTH 12.5 % (11.6-17.2); WHITE BLOOD COUNT 10.2 TH/MM3 (4.0-11.0)
[2018-03-03 11:27] LABS: BICARBONATE 25.4 MEQ/L (21.0-32.0); CALCIUM 9.1 MG/DL (8.5-10.1)
[2018-03-03 11:31] LABS: CREATININE 0.57 MG/DL (0.50-1.00)
--- NOTE | 2018-03-03 11:46 | PD.CONS ---
History of Present Illness Service Infectious disease Consult Requested By Dr Cowan Reason for Consult Pneumonia Primary Care Physician Glenroy Jasmine M.D. 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 When she continued to have fevers- she went to a Urgent care center and a CXR was done and patient was given Augmentin. Parents broght her back to [place] and came to hospital when high grade fevers, cough and shortness of breath. Found to have bilateral pneumonia and now Step pnemoniae antigen is positive. Has improved on Vancomycin and Zosyn. Review of Systems Constitutional: COMPLAINS OF: Fever, Chills Endocrine: DENIES: Polyuria, Polyphagia Eyes: DENIES: Eye inflammation, Eye pain, Vision loss Ears, nose, mouth, throat: DENIES: Hearing loss, Oral lesions, Throat pain, Hoarseness Respiratory: COMPLAINS OF: Cough, Wheezing, Shortness of breath Cardiovascular: DENIES: Syncope, Lower Extremity Edema Gastrointestinal: DENIES: Constipation, Diarrhea Genitourinary: DENIES: Urinary frequency, Urgency Musculoskeletal: DENIES: Joint Swelling Integumentary: DENIES: Rash Hematologic/lymphatic: DENIES: Lymphadenopathy Neurologic: DENIES: Headache, Paresthesias Psychiatric: DENIES: Mood changes, Depression Past Family Social History Allergies: Coded Allergies: No Known Allergies (Unverified , 03/02/18) Past Medical History No past h/o Asthma or Pneumonia Reported Medications Vancomycin and Zosyn Family History Non contributory Social History College student No smoking or drug use Physical Exam Vital Signs Vital Signs Date Time Temp Pulse Resp B/P (MAP) Pulse Ox O2 Delivery O2 Flow Rate FiO2 03/03/18 08:34 97.0 103 23 115/69 (84) 94 03/03/18 04:37 96.9 68 20 109/77 (88) 97 03/03/18 01:40 96.8 65 20 115/80 (92) 95 03/02/18 22:47 96.7 83 20 121/80 (94) 97 03/02/18 21:58 97 21 03/02/18 20:00 98.3 76 20 113/67 (82) 98 03/02/18 16:00 98.2 96 23 117/66 (83) 98 03/02/18 15:01 98 27 117/66 (83) 93 03/02/18 14:20 96 21 03/02/18 14:01 64 17 104/60 (75) 95 03/02/18 14:00 65 03/02/18 13:00 97.9 56 16 100/65 (77) 96 03/02/18 12:00 72 17 102/66 (78) 95 03/02/18 12:00 63 Physical Exam GENERAL: This is a well-nourished, well-developed patient, in no apparent distress. SKIN: No rashes, ecchymoses or lesions. Cool and dry. HEAD: Atraumatic. Normocephalic. No temporal or scalp tenderness. EYES: Pupils equal round and reactive. Extraocular motions intact. No scleral icterus. No injection or drainage. ENT: Nose without bleeding, purulent drainage or septal hematoma. Throat without erythema, tonsillar hypertrophy or exudate. Uvula midline. Airway patent. NECK: Trachea midline. No JVD or lymphadenopathy. Supple, nontender, no meningeal signs. CARDIOVASCULAR: Regular rate and rhythm without murmurs, gallops, or rubs. RESPIRATORY: . Breath sounds equal bilaterally but diminshed. Some wheezing GASTROINTESTINAL: Abdomen soft, non-tender, nondistended. No hepato-splenomegaly , or palpable masses. No guarding. MUSCULOSKELETAL: Extremities without clubbing, cyanosis, or edema. No joint tenderness, effusion, or edema noted. No calf tenderness. Negative Homans sign bilaterally. NEUROLOGICAL: Awake and alert. Cranial nerves II through XII intact. Motor and sensory grossly within normal limits. Five out of 5 muscle strength in all muscle groups. Normal speech. Laboratory Laboratory Tests Test 03/02/18 16:20 03/03/18 10:35 Vancomycin Level Trough 4.7 White Blood Count 10.2 Red Blood Count 3.68 Hemoglobin 11.8 Hematocrit 35.0 Mean Corpuscular Volume 95.0 Mean Corpuscular Hemoglobin 32.0 Mean Corpuscular Hemoglobin Concent 33.7 Red Cell Distribution Width 12.5 Platelet Count 306 Mean Platelet Volume 7.8 Neutrophils (%) (Auto) 84.7 Lymphocytes (%) (Auto) 9.5 Monocytes (%) (Auto) 4.5 Eosinophils (%) (Auto) 0.0 Basophils (%) (Auto) 1.3 Neutrophils # (Auto) 8.6 Lymphocytes # (Auto) 1.0 Monocytes # (Auto) 0.5 Eosinophils # (Auto) 0.0 Basophils # (Auto) 0.1 CBC Comment DIFF FINAL Differential Comment Blood Urea Nitrogen 9 Creatinine 0.57 Random Glucose 108 Calcium Level 9.1 Sodium Level 143 Potassium Level 3.7 Chloride Level 109 Carbon Dioxide Level 25.4 Anion Gap 9 Estimat Glomerular Filtration Rate 137 Date/Time Source Procedure Growth Status 03/01/18 00:50 Blood Peripheral Aerobic Blood Culture - Preliminary NO GROWTH IN 2 DAYS Resulted 03/01/18 00:50 Blood Peripheral Anaerobic Blood Culture - Preliminary NO GROWTH IN 2 DAYS Resulted 03/01/18 13:06 Sputum Expectorated Sputum Gram Stain - Final Resulted 03/01/18 13:06 Sputum Expectorated Sputum Sputum Culture - Preliminary HEAVY GROWTH NORMAL RESPIRATORY LAYO... Resulted 03/01/18 12:59 Urine Clean Catch Legionella Antigen - Final PRESUMPTIVE NEGATIVE FOR LEGIONELLA P... Complete 03/01/18 12:59 Streptococcus pneumoniae Antigen (M - Final Pos S.pneumoniae Antigen Complete Result Diagram: 03/03/18 1035 03/03/18 1035 Assessment and Plan Problem List: (1) Streptococcus pneumoniae pneumonia ICD Codes: J13 - Pneumonia due to Streptococcus pneumoniae Plan: Failed Augmentin treatment Continue IV Vancomycin ( in case it is resistant) Add Ceftriaxone 2 g daily Stop Zosyn Will add Doxy 100 mg po bid for some atypical coverage Check HIV test and Serum IgG (2) Sepsis ICD Codes: A41.9 - Sepsis, unspecified organism (3) Pneumonia ICD Codes: J18.9 - Pneumonia, unspecified organism Status: Acute Problem Qualifiers (1) Streptococcus pneumoniae pneumonia: (2) Pneumonia: Qualified Codes: J18.1 - Lobar pneumonia, unspecified organism Lorelei Mcelroy MD March 03, 2018 11:46
--- NOTE | 2018-03-03 12:25 | HHI.PR ---
Subjective Remarks Follow-up sepsis pneumonia. Patient seen and examined, father at bedside. Patient is sitting in chair comfortably eating lunch. In NAD. Much improved. On RA. With no dyspnea at rest or with ambulation. No abdominal pain, nausea or vomiting. ID following patient. Continue IV antibiotics. Objective Vitals Vital Signs Date Time Temp Pulse Resp B/P (MAP) Pulse Ox O2 Delivery O2 Flow Rate FiO2 03/03/18 08:34 97.0 103 23 115/69 (84) 94 03/03/18 04:37 96.9 68 20 109/77 (88) 97 03/03/18 01:40 96.8 65 20 115/80 (92) 95 03/02/18 22:47 96.7 83 20 121/80 (94) 97 03/02/18 21:58 97 21 03/02/18 20:00 98.3 76 20 113/67 (82) 98 03/02/18 16:00 98.2 96 23 117/66 (83) 98 03/02/18 15:01 98 27 117/66 (83) 93 03/02/18 14:20 96 21 03/02/18 14:01 64 17 104/60 (75) 95 03/02/18 14:00 65 03/02/18 13:00 97.9 56 16 100/65 (77) 96 I/O 03/02/18 03/02/18 03/02/18 03/03/18 03/03/18 03/03/18 06:59 14:59 22:59 06:59 14:59 22:59 Intake Total 480 ml 790 ml 1768 ml Output Total 700 ml 870 ml Balance -220 ml -80 ml 1768 ml Intake Oral 480 ml 790 ml IV Total 1768 ml Output Urine Total 700 ml 870 ml # Bowel Movements 0 Result Diagram: 03/03/18 1035 03/03/18 1035 Imaging Last Impressions Abdomen/Pelvis CT 03/02/18 0000 Signed Impressions: Service Date/Time: Friday, March 02, 2018 18:15 - CONCLUSION: No acute findings in the abdomen and pelvis. Devan Lamb MD Chest CT 03/01/18 1929 Signed Impressions: Service Date/Time: Thursday, March 01, 2018 20:40 - CONCLUSION: 1. Alveolar consolidations involving the right upper lobe, lingula of the left upper lobe, and bilateral lower lobes consistent with extensive bilateral pneumonia. Clinical correlation is recommended. 2. Possible bilateral hilar lymphadenopathy. 3. Mild hepatosplenomegaly. Luis Miguel Contreras MD Chest X-Ray 03/01/18 0153 Signed Impressions: Service Date/Time: Thursday, March 01, 2018 02:14 - CONCLUSION: Bilateral infiltrates. Timmy Tompkins MD Abdomen X-Ray 03/01/18 0000 Signed Impressions: Service Date/Time: Thursday, March 01, 2018 15:25 - CONCLUSION: Nonspecific bowel gas pattern with diffusely distended air-filled small bowel and colon in the upper and mid abdomen differential diagnosis includes ileus and distal colonic obstruction. Devan Lamb MD Objective Remarks GENERAL: Well-developed, well-nourished patient in NAD. Much improved. SKIN: Warm and dry. No rash. HEAD: Normocephalic. Atraumatic. EYES: Pupils equal and round. No scleral icterus. No injection or drainage. ENT: No nasal bleeding or discharge. Mucous membranes pink and moist. NECK: Supple. Trachea midline. CARDIOVASCULAR: Regular rate and rhythm. S1, S2 noted. No murmur appreciated. RESPIRATORY: No accessory muscle use. Clear to auscultation. Breath sounds equal bilaterally. GASTROINTESTINAL: Abdomen soft, non-tender, nondistended. Normoactive bowel sounds x4. MUSCULOSKELETAL: No obvious deformities. Extremities without clubbing, cyanosis , or edema. NEUROLOGICAL: Awake and alert. No obvious cranial nerve deficits. Motor grossly within normal limits. 5/5 muscle strength in bilateral upper and lower extremities. Normal speech. PSYCHIATRIC: Appropriate mood and affect; insight and judgment normal. A/P Problem List: (1) Sepsis ICD Code: A41.9 - Sepsis, unspecified organism (2) Pneumonia ICD Code: J18.9 - Pneumonia, unspecified organism Status: Acute Assessment and Plan This is a 17-year-old female with no known medical history presenting with cough , congestion, and fever found to have bilateral infiltrates on CXR as well as sepsis. Sepsis suspect secondary to Streptococcus pneumoniae pneumonia - Met sepsis with tachycardia, fever and leukocytosis with source pneumonia. - T-max 102.7 on admission, tachycardia with HR>100, and CXR showing bilateral infiltrates. Chest CT showing bilateral pneumonia. - Patient did fail outpatient Augmentin. Was initially started on Rocephin and azithromycin and this was changed IV vancomycin and Zosyn. Added Lactobacillus. - Infectious disease now following patient is on ceftriaxone and vancomycin. Zosyn has been stopped. Appreciate input and recommendations. White count normal but with predominant neutrophils. - Pulmonology consulted and following, appreciate further recommendations and input. - Blood cultures no growth to date. U/A negative. Lactic acid WNL. Sputum negative. Influenza negative. Negative Monoscreen. - Urine legionella negative and pneumococcal antigen positive. - PT evaluation, no needs for home. Encourage OOB and ambulation. Continue IS, acapella and deep breathing. - Continue Duonebs. - Supplemental O2 PRN, comfortable on RA. - Sultana PRN for myalgias. - Supportive care. Continue to monitor. Constipation. Rule out ileus vs colonic obstruction. - Denies any abdominal pain. Previously no bowel movement for several days. Patient did have a bowel movement last evening. Is now passing flatus. - Abdominal x-ray reviewed showing bowel gas pattern with nonspecific diffuse distended air-fluid in the small bowel and colon. Abdominal/pelvis CT obtained showing no acute findings. - Continue bowel regimen. Monitor for bowel movements. Encourage ambulation. DVT prophylaxis: Young and ambulatory, bilateral SCDs. Discharge Planning Discharge home within 1-2 days depending on clinical improvement. Awaiting ID recs for PO antibiotics. Problem Qualifiers (1) Pneumonia: Qualified Codes: J18.1 - Lobar pneumonia, unspecified organism Kaylene Cevallos March 03, 2018 12:25
[2018-03-03 12:58] VITALS: BP 110/76; PULSE 82; RESP 22; TEMP 97.1; O2SAT 95
[2018-03-03] MEDS: cefTRIAXone INJ 2,000 MG in SODIUM CHLORIDE 0.9% INJ 100 ML IV SCH (13:22)
[2018-03-03] MEDS: DOXYCYCLINE HYCLATE 100 MG CAP PO SCH ×2 (14:37→21:27)
[2018-03-03 17:07] VITALS: BP 113/57; PULSE 96; RESP 22; TEMP 96.4; O2SAT 95
--- NOTE | 2018-03-03 19:25 | HHI.PR ---
Subjective Remarks Improved and taking her diet . No fever . Less cough and no wheezing. CT noted. Objective Vital Signs Date Time Temp Pulse Resp B/P (MAP) Pulse Ox O2 Delivery O2 Flow Rate FiO2 03/03/18 17:07 96.4 96 22 113/57 (75) 95 03/03/18 12:58 97.1 82 22 110/76 (87) 95 03/03/18 08:34 97.0 103 23 115/69 (84) 94 03/03/18 04:37 96.9 68 20 109/77 (88) 97 03/03/18 01:40 96.8 65 20 115/80 (92) 95 03/02/18 22:47 96.7 83 20 121/80 (94) 97 03/02/18 21:58 97 21 03/02/18 20:00 98.3 76 20 113/67 (82) 98 I/O 03/02/18 03/02/18 03/02/18 03/03/18 03/03/18 03/03/18 07:00 15:00 23:00 07:00 15:00 23:00 Intake Total 480 ml 1050 ml 1508 ml 600 ml 1262.5 ml Output Total 700 ml 870 ml Balance -220 ml 180 ml 1508 ml 600 ml 1262.5 ml Intake Oral 480 ml 790 ml 1000 ml IV Total 260 ml 1508 ml 600 ml 262.5 ml Output Urine Total 700 ml 870 ml # Voids 3 # Bowel Movements 0 Result Diagram: 03/03/18 1035 03/03/18 1035 Objective Remarks GENERAL: This is an averagely built young white female who is alert and oriented. HEENT: Head is normocephalic. Pupils are reactive. Tongue is coated. Throat is clear. Nasal mucosa dry NECK: Supple. No bruits or thyroid enlargement. CHEST: Decreased breath sounds over the bases .Occ wheeze HEART: Sounds are regular, S1 and S2 with no murmur. ABDOMEN: Soft, scaphoid with mild epigastric tenderness. There is no organomegaly. EXTREMITIES: No lesions, no edema. NEUROLOGIC: Reflexes are 1+ with no gross motor deficit. Cranial nerves grossly intact. SKIN: No lesions observed. Assessment and Plan Assessment and Plan ASSESSMENT: 1. Atypical pneumonia with hypoxemia. 2. Dehydration. 3. Sepsis. 4. Ileus Plan : 1. Continue antibiotics. 2. O2 PRN 2 L 3. Nebs tid with duoneb 4. Chest Xray in am 5. CBC,BMP in am 6. Robitussin AC 2 tsp q6h prn Gerry Alvarado MD March 03, 2018 19:25
[2018-03-03 20:00] VITALS: BP 107/51; PULSE 90; RESP 20; TEMP 96.5; O2SAT 96
[2018-03-04] VITALS: BP 117/76; PULSE 86; RESP 20; TEMP 97.4; O2SAT 95
[2018-03-04] MEDS: CHLORHEXIDINE GLUCONATE 2 % 1 PACK (2 CLOTHS)(taper/protocol) TOPICAL SCH (04:00)
[2018-03-04] MEDS ORDERED: PHARMACY ORDERED LAB ONE ×2 (05:45→12:15)
--- NOTE | 2018-03-04 06:00 | RADRPT ---
EXAM DATE/TIME: 03/04/2018 05:41 [facility] COMPARISON: CHEST SINGLE AP, March 01, 2018, 2:14. INDICATIONS : Fever, cough, congestion. Evaluate for pneumonia. MEDICAL HISTORY : None. SURGICAL HISTORY : None. ENCOUNTER: Subsequent ACUITY: 1 week PAIN SCORE: 0/10 LOCATION: Bilateral chest FINDINGS: A single view of the chest demonstrates a right upper lobe infiltrate slightly improved. Left lung an d right lower lung remain clear. The cardiomediastinal contours are unremarkable. Osseous structure s are intact. CONCLUSION: Persistent infiltrate in the right upper lobe slightly improved. Del Powell MD on March 04, 2018 at 5:58 Board Certified Radiologist. This report was verified electronically.
[2018-03-04] MEDS: VANCOMYCIN INJ 1,250 MG in SODIUM CHLOR 0.9% 250 ML INJ 250 ML IV SCH (06:33)
[2018-03-04] MEDS: SODIUM CHLORIDE 0.9% FLUSH 10 ML FLUSH IV FLUSH PRN (06:34)
[2018-03-04 07:26] LABS: CREATININE 0.44 MG/DL (0.50-1.00)
[2018-03-04] MEDS: RESP: ALBUTEROL 2.5 MG/IPRATROPIUM 0.5 MG NEB (SCH) NEB ×2 (07:38→14:29)
[2018-03-04 07:39] VITALS: O2SAT 97
[2018-03-04 08:00] VITALS: BP 105/53; PULSE 65; RESP 18; TEMP 97.1; O2SAT 98
[2018-03-04] MEDS: LACTOBACILLUS ACIDOPHILUS TAB PO SCH ×3 (08:29→13:00)
[2018-03-04] MEDS: guaiFENesin E.R. 600 MG TAB PO SCH (08:31)
[2018-03-04] MEDS: DOCUSATE SODIUM 50 MG/SENNA 8.6 MG TAB PO SCH (08:31)
[2018-03-04] MEDS: SODIUM CHLORIDE 0.9% FLUSH 10 ML FLUSH IV FLUSH SCH (08:32)
[2018-03-04] MEDS: DOXYCYCLINE HYCLATE 100 MG CAP PO SCH (08:35)
[2018-03-04] MEDS: methylPREDNISolone SOD SUCC 40 MG/1 ML VIAL IV PUSH SCH (09:00)
[2018-03-04] MEDS ORDERED: NEBULIZER1 MI1 (11:47)
--- NOTE | 2018-03-04 11:48 | HHI.DCPOC ---
Discharge Care Plan Diagnosis: (1) Streptococcus pneumoniae pneumonia (2) Pneumonia Goals to Promote Your Health * To prevent worsening of your condition and complications * To maintain your health at the optimal level Directions to Meet Your Goals Take your medications as prescribed Follow your dietary instruction Follow activity as directed Keep your appointments as scheduled Take your immunizations and boosters as scheduled If your symptoms worsen call your PCP, if no PCP go to Urgent Care Center or Emergency Room Smoking is Dangerous to Your Health. Avoid second hand smoke Call the 24-hour hour crisis hotline for domestic abuse at [facility] March 04, 2018 11:48
[2018-03-04] MEDS ORDERED: CEFU1TAB18 PO (11:55)
[2018-03-04] MEDS ORDERED: guaiFENesin ER PO (11:55)
[2018-03-04] MEDS ORDERED: Albuterol-Ipratropium Neb NEB (11:55)
[2018-03-04] MEDS ORDERED: LACT PO (11:55)
[2018-03-04] MEDS ORDERED: DOXY100C PO (11:55)
[2018-03-04] MEDS ORDERED: MEDR4PAK PO (11:55)
--- NOTE | 2018-03-04 12:02 | HHI.DS ---
Discharge Summary Admission Date March 01, 2018 at 03:25 Discharge Date: March 04, 2018 Admitting Diagnosis sepsis; pneumonia; failed OPT therapy (1) Sepsis ICD Code: A41.9 - Sepsis, unspecified organism (2) Pneumonia ICD Code: J18.9 - Pneumonia, unspecified organism Status: Acute (3) Streptococcus pneumoniae pneumonia ICD Code: J13 - Pneumonia due to Streptococcus pneumoniae Diagnosis: Principal Status: Acute Procedures None Brief History - From Admission 17 year old female with no significant medical history presented to the ER with fever, congestion, shortness of breath, and cough. Symptoms began about a week ago with mild cough and fever and has since then persisted. She went to an urgent care three days ago and was given a prescription for Augmentin which she has been taking. She states a flu test there was negative. Her symptoms have not improved prompting her to seek further evaluation. She endorses some left low ribcage pain but denies dysuria, frequency, urgency, nausea, vomiting, diarrhea, or abdominal pain. LMP was 1 week prior. Other associated symptoms include myalgias. She has been taking Ibuprofen every 4-6 hours with minimal relief. She denies sore throat, ear pain, eye drainage, rash , or neck stiffness. She is on summer break from college at [employer] where she lives in a dorm. She denies any recent sick contacts or recent travel outside of the country. She received a flu shot this season. CBC/BMP: 03/03/18 1035 03/04/18 0627 Significant Findings Laboratory Tests Test 03/01/18 13:35 03/02/18 09:10 03/02/18 16:20 03/03/18 10:35 Blood Gas HCO3 21 mmol/L (22-26) Blood Gas Base Excess -2.3 mmol/L (-2-2) Arterial Blood pH 7.43 (7.380-7.420) Arterial Blood Partial Pressure CO2 33 mmHg (38-42) Blood Gas Hemoglobin 10.6 G/DL (12.0-16.0) Red Blood Count 3.41 MIL/MM3 (4.00-5.30) 3.68 MIL/MM3 (4.00-5.30) Hemoglobin 10.7 GM/DL (11.6-15.3) Hematocrit 32.1 % (35.0-46.0) Neutrophils (%) (Auto) 85.8 % (16.0-70.0) 84.7 % (16.0-70.0) Lymphocytes # (Auto) 0.5 TH/MM3 (1.0-4.8) Blood Urea Nitrogen 4 MG/DL (7-18) Creatinine 0.45 MG/DL (0.50-1.00) Random Glucose 159 MG/DL (74-106) 108 MG/DL (74-106) Albumin 2.8 GM/DL (3.4-5.0) Calcium Level 8.3 MG/DL (8.5-10.1) Aspartate Amino Transf (AST/SGOT) 12 U/L (16-38) Chloride Level 108 MEQ/L (98-107) 109 MEQ/L (98-107) Vancomycin Level Trough 4.7 MCG/ML (5.0-10.0) Neutrophils # (Auto) 8.6 TH/MM3 (1.8-7.7) Test 03/04/18 06:27 Creatinine 0.44 MG/DL (0.50-1.00) Imaging Last Impressions Chest X-Ray 03/04/18 0600 Signed Impressions: Service Date/Time: Sunday, March 04, 2018 05:41 - CONCLUSION: Persistent infiltrate in the right upper lobe slightly improved. Del Powell MD Abdomen/Pelvis CT 03/02/18 0000 Signed Impressions: Service Date/Time: Friday, March 02, 2018 18:15 - CONCLUSION: No acute findings in the abdomen and pelvis. Devna Lamb MD Chest CT 03/01/18 1929 Signed Impressions: Service Date/Time: Thursday, March 01, 2018 20:40 - CONCLUSION: 1. Alveolar consolidations involving the right upper lobe, lingula of the left upper lobe, and bilateral lower lobes consistent with extensive bilateral pneumonia. Clinical correlation is recommended. 2. Possible bilateral hilar lymphadenopathy. 3. Mild hepatosplenomegaly. Luis Miguel Contreras MD Abdomen X-Ray 03/01/18 0000 Signed Impressions: Service Date/Time: Thursday, March 01, 2018 15:25 - CONCLUSION: Nonspecific bowel gas pattern with diffusely distended air-filled small bowel and colon in the upper and mid abdomen differential diagnosis includes ileus and distal colonic obstruction. Devan Lamb MD PE at Discharge GENERAL: Well-developed, well-nourished patient in NAD. Much improved. SKIN: Warm and dry. No rash. HEAD: Normocephalic. Atraumatic. EYES: Pupils equal and round. No scleral icterus. No injection or drainage. ENT: No nasal bleeding or discharge. Mucous membranes pink and moist. NECK: Supple. Trachea midline. CARDIOVASCULAR: Regular rate and rhythm. S1, S2 noted. No murmur appreciated. RESPIRATORY: No accessory muscle use. Clear to auscultation. Breath sounds equal bilaterally. GASTROINTESTINAL: Abdomen soft, non-tender, nondistended. Normoactive bowel sounds x4. MUSCULOSKELETAL: No obvious deformities. Extremities without clubbing, cyanosis , or edema. NEUROLOGICAL: Awake and alert. No obvious cranial nerve deficits. Motor grossly within normal limits. 5/5 muscle strength in bilateral upper and lower extremities. Normal speech. PSYCHIATRIC: Appropriate mood and affect; insight and judgment normal. Hospital Course This is a 17-year-old female with no chronic medical illnesses who presented the hospital because of fever, congestion, shortness of breath. Patient was recently treated at a local urgent care facility with Augmentin without improvement. Upon workup in the emergency department patient was found to have sepsis with tachycardia, febrile illness, imaging studies that indicate significant bilateral pneumonia. Patient was admitted with empirical antibiotic with Rocephin, Zithromax. Patient with slow response to treatment. She was experiencing hypoxia where she required oxygen at 3.5 L to maintain O2 saturation. Patient was started on vancomycin and Zosyn with improvement. Workup did indicate a strep pneumonia antigen which was positive. Infectious disease was consulted who indicated continuing IV vancomycin, adding Rocephin, discontinuing Zosyn, and adding doxycycline. Patient continued to improve. She is no longer requiring oxygen for O2 supplementation. She is no longer febrile. She is no longer short of breath or dyspneic. Patient is very eager to go home. States that she does not get enough sleep at the hospital. Patient is clinically stable at this time. Case was discussed with infectious disease who recommended that the patient continue on Ceftin/doxycycline for total of 2 weeks. Pt Condition on Discharge: Stable Discharge Disposition: Discharge Home Discharge Time: > 30 minutes Discharge Instructions DIET: Follow Instructions for: As Tolerated, No Restrictions Activities you can perform: Regular-No Restrictions Follow up Referrals: Infectious Disease - [address] Mcelroy PCP Follow-up - 1 Week Pulmonology - 1 Week with Gerry Alvarado MD New Medications: Cefuroxime (Ceftin) 250 Mg Tab 250 MG PO BID for Infection for 10 Days, #20 TAB Methylprednisolone Dosepak (Medrol Dosepak) 4 Mg Dspk 4 MG PO DIRECTED, #1 DSPK 0 Refills Per Pharmacist direction Nebulizer (Nebulizer) 1 Mis Mis EA .XX DIRECTED for Breathing Treatment, #1 0 Refills Doxycycline Hyclate (Doxycycline Hyclate) 100 Mg Cap 100 MG PO BID for Infection for 13 Days, #26 CAP Lactobacillus Acidophilus (Acidophilus/l-Sporogenes) 35 Million Cell-25 Million Cell Tab 1 TAB PO TID for Infection for 10 Days, TAB [Albuterol-Ipratropium Neb] () 1 AMPULE NEBU 1 AMPULE NEB Q6HR WHILE AWAKE NEB for 14 Days [guaiFENesin ER] () 600 MG TABCR 600 MG PO BID for 10 Days Discontinued Medications: Albuterol 8.5 GM Inh (Proair Hfa 8.5 GM Inh) 90 Mcg/Act Aer 2 PUFF INH Q4-6H PRN for SHORTNESS OF BREATH, #1 INHALER 0 Refills 108 mcg/actuation Amoxicillin-Clavulanate (Augmentin) 875-125 Mg Tab 1 TAB PO BID for Infection, TAB 0 Refills Promethazine-Codeine Liq (Promethazine-Codeine Liq) 6.25-10 Mg/5 Ml Syrp 10 ML PO Q6H PRN for COUGH AND/OR COLD SYMPTOMS, ML 0 Refills Kush Watson March 04, 2018 12:02
[2018-03-04] MEDS: cefTRIAXone INJ 2,000 MG in SODIUM CHLORIDE 0.9% INJ 100 ML IV SCH (12:57)
[2018-03-04] MEDS ORDERED: VANCOMYCIN INJ 1,500 MG in SODIUM CHLORID 0.9% 500 ML INJ 500 ML IV SCH (14:00)
== END 2018-03-04 15:41 | disposition home or self-care (01) | DRG 871 ==
LOC: PHED 00:05 → PHEDA 03:25 → PH3B 08:24 → PHICU 03-02 00:18 → PH3B 03-02 19:50
PROVIDERS: ADMIT Hospitalist; ATTEND Hospitalist
DX: A41.9 Sepsis, unspecified organism (principal); J13 Pneumonia due to Streptococcus pneumoniae; K56.7 Ileus, unspecified
CPT/HCPCS: 36600; 71045; 71250; 74018; 74177; 80048; 80053; 80202; 81001; 82565; 82784; 82805; 83605; 84702; 85025; 86308; 86703; 87040; 87070; 87205; 87449; 87804; 94640; 94664; 94667; 94668; 96365; 96368; J0456; J0696; J1885; J2405; J2543; J2920; J3370; J7030; J7050; Q9963; Q9967

== ENCOUNTER 2018-03-15 13:24 | Emergency (ER) | payer OTHER ==
[~2018-03-15] VITALS: Ht 170.2 cm; Wt 73.0 kg
[~2018-03-15 13:24] MED LIST changes: -AMOXICILL; +Albuterol-Ipratropium Neb NEB; +CEFU1TAB18 PO; +DOXY100C PO; +LACT PO; +MEDR4PAK PO; +NEBULIZER1 MI1; +guaiFENesin ER PO
[2018-03-15 13:30] VITALS: BP 118/59; PULSE 92; RESP 16; TEMP 97.7; O2SAT 98
[2018-03-15] MEDS ORDERED: KETOROLAC TROMETHAMINE 60 MG/2 ML (IM) VIAL IM ONE (14:00)
--- NOTE | 2018-03-15 14:05 | PD ---
HPI Chief Complaint: Musculoskeletal Complaint Time Seen by Provider: 13:36 Travel History International Travel<30 days: No Contact w/Intl Traveler<30days: No Traveled to known affect area: No History of Present Illness HPI This is a 17-year-old female here with right lateral rib pain 3 hours. She reports she was getting out of the car when she twisted her torso and laughed at the same time causing severe pain in the lateral ribs. She also reports she felt a popping sensation. She is currently being treated for right-sided pneumonia with doxycycline. She reports her symptoms have continued to improve since her discharge from the hospital. She is denying fever, chest pain, shortness of breath. She continues to have an intermittent cough. Symptom severity is moderate. Aggravated by deep inspiration and palpation of the ribs. Relieved with rest PFSH Past Medical History Cancer: No Cardiovascular Problems: No Diminished Hearing: No Endocrine: No Genitourinary: No Immune Disorder: No Musculoskeletal: No Neurologic: No Reproductive: No Respiratory: No Immunizations Current: Yes ?: Not LMP: 3 WEEKS Past Surgical History Oral Surgery: Yes (WISDOM TEETH) Other Surgery: Yes (LIP CYST REMOVED) Social History Alcohol Use: No Tobacco Use: No Substance Use: No Allergies-Medications (Allergen,Severity, Reaction): Coded Allergies: No Known Allergies (Unverified , 03/15/18) Reported Meds & Prescriptions Reported Meds & Active Scripts Active Ceftin (Cefuroxime Axetil) 250 Mg Tab 250 Mg PO BID 10 Days Medrol Dosepak (Methylprednisolone) 4 Mg Dspk 4 Mg PO DIRECTED Per Pharmacist direction Acidophilus/l-Sporogenes (Lactobacillus Acidophilus) 35 Million Cell-25 Million Cell Tab 1 Tab PO TID 10 Days [guaiFENesin ER] 600 MG Tabcr 600 Mg PO BID 10 Days [Albuterol-Ipratropium Neb] 1 AMPULE Nebu 1 Ampule NEB Q6HR WHILE AWAKE NEB 14 Days Doxycycline Hyclate 100 Mg Cap 100 Mg PO BID 13 Days Nebulizer 1 Mis Mis Ea .XX DIRECTED Review of Systems Except as stated in HPI: all other systems reviewed are Neg General / Constitutional: No: Fever Eyes: No: Visual changes HENT: No: Headaches Cardiovascular: No: Chest Pain or Discomfort Respiratory: No: Shortness of Breath Gastrointestinal: No: Abdominal Pain Genitourinary: No: Dysuria Physical Exam Narrative GENERAL: Alert and well-appearing 17-year-old female SKIN: Warm and dry. HEAD: Normocephalic. EYES: No scleral icterus. No injection or drainage. NECK: Supple, trachea midline. CARDIOVASCULAR: Regular rate and rhythm. No murmur appreciated RESPIRATORY: Breath sounds equal bilaterally. No accessory muscle use. + ttp right posterior/lateral ribs. No palpable fracture or crepitus. Even and equal chest rise GASTROINTESTINAL: Abdomen soft, non-tender, nondistended. MUSCULOSKELETAL: No cyanosis, or edema. Data Data Last Documented VS Vital Signs Date Time Temp Pulse Resp B/P (MAP) Pulse Ox O2 Delivery O2 Flow Rate FiO2 03/15/18 13:30 97.7 92 16 118/59 (78) 98 Orders Orders Chest, Single Ap (03/15/18 ) Ketorolac Inj (Toradol Inj) (03/15/18 14:00) [facility] Medical Decision Making Medical Screen Exam Complete: Yes Emergency Medical Condition: Yes Differential Diagnosis Rib fracture, pneumothorax, pleurisy Narrative Course 17-year-old female with right rib pain. Chest x-ray is negative for rib fracture or pneumothorax. Patient was given a shot of Toradol and reports symptom improvement. She is stable and ready for discharge. Diagnosis Primary Impression: Rib pain on right side Referrals: Primary Care Physician Additional Instructions: Medication as directed. Avoid heavy lifting or strenuous activity. Follow up with your doctor return if you develop new or worsening symptoms Scripts Ibuprofen (Ibuprofen) 800 Mg Tab 800 MG PO Q6HR Y for PAIN, #40 TAB 0 Refills Prov: Kavita Vega 03/15/18 Disposition: 01 DISCHARGE HOME Condition: Stable Kavita Vega March 15, 2018 14:05
--- NOTE | 2018-03-15 14:23 | RADRPT ---
EXAM DATE/TIME: 03/15/2018 14:06 [facility] COMPARISON: CHEST SINGLE AP, March 04, 2018, 5:41. INDICATIONS : Sudden onset of right mid chest wall pain today MEDICAL HISTORY : None. SURGICAL HISTORY : None. ENCOUNTER: Initial ACUITY: 1 day PAIN SCORE: 8/10 LOCATION: Right chest TECH NOTE: Denies , JESE Wray MR#[id number] :98 Exam date/desc:March 15, 2018CHES T SINGLE AP FINDINGS: A single view of the chest demonstrates the lungs to be symmetrically aerated without evidence of mas s, infiltrate or effusion. The cardiomediastinal contours are unremarkable. Osseous structures are intact. CONCLUSION: 1. No acute cardiopulmonary disease. Brayan Escoto MD on March 15, 2018 at 14:20 Board Certified Radiologist. This report was verified electronically.
[2018-03-15] MEDS ORDERED: IBUP1TAB7 PO (14:34)
== END 2018-03-15 14:47 | disposition home or self-care (01) ==
LOC: PHEFT 13:24
DX: R07.81 Pleurodynia (principal); R05 Cough
CPT/HCPCS: 71045; 96372; 99283; J1885

== ENCOUNTER → 2018-04-02 | Outpatient (CLI) | payer OTHER ==
[~2018-04-02] MED LIST changes: +IBUP1TAB7 PO
== END ==
LOC: PHRSP 07:35
PROVIDERS: ATTEND Internal Medicine Pulmonary Disease
DX: R05 Cough (principal); J18.9 Pneumonia, unspecified organism; R06.2 Wheezing
CPT/HCPCS: 94060; 94726; 94729